=== PATIENT | male | born 1990 | race American Indian/Alaskan Native ===

== ENCOUNTER 2020-05-29 13:04 | Emergency (ER) | payer SELFPAY ==
[2020-05-29 13:08] VITALS: BP 154/100
--- NOTE | 2020-05-29 13:16 | Emergency Department Report ---
ED General Adult HPI - General Chief complaint: Dental/Oral Stated complaint: TOOTHACHE Time Seen by Provider: 05/29/20 13:05 Source: patient Mode of arrival: Ambulatory Limitations: No Limitations - History of Present Illness Initial comments: 29-year-old -[place] male patient presents with complaints of left lower dental pain x1 week. Patient admits to history of recurrent dental pain in the area. He rates his current pain is 8/10 in severity and denies any difficulty opening/closing his jaw or difficulty swallowing. He also denies any fever/chills/sweats. Patient states he recently moved to [place] and does not currently have a dental specialist. Severity scale (0 -10): 7 - Related Data Previous Rx's Medication Instructions Recorded Last Taken Type Acetaminophen/Codeine [Tylenol 1 tab PO Q8H PRN #8 tab 05/29/20 Unknown Rx /Codeine # 3 tab] Ibuprofen [Motrin 800 MG tab] 800 mg PO Q8HR PRN #21 tablet 05/29/20 Unknown Rx Penicillin V Potassium 500 mg PO QID 7 Days #28 tablet 05/29/20 Unknown Rx Allergies Allergy/AdvReac Type Severity Reaction Status Date / Time No Known Allergies Allergy Unverified 05/29/20 13:05 ED Review of Systems ROS: Stated complaint: TOOTHACHE Other details as noted in HPI Constitutional: denies: chills, fever, malaise, weakness ENT: dental pain. denies: ear pain, throat pain Respiratory: denies: shortness of breath Cardiovascular: denies: chest pain Skin: denies: change in color Hematological/Lymphatic: denies: swollen glands ED Past Medical Hx - Past Medical History Previous Medical History?: No - Surgical History Past Surgical History?: No - Social History Smoking Status: Current Every Day Smoker Substance Use Type: None - Medications Home Medications: Home Medications Medication Instructions Recorded Confirmed Last Taken Type Acetaminophen/Codeine [Tylenol 1 tab PO Q8H PRN #8 tab 05/29/20 Unknown Rx /Codeine # 3 tab] Ibuprofen [Motrin 800 MG tab] 800 mg PO Q8HR PRN #21 tablet 05/29/20 Unknown Rx Penicillin V Potassium 500 mg PO QID 7 Days #28 tablet 05/29/20 Unknown Rx ED Physical Exam - General Limitations: No Limitations General appearance: alert, in no apparent distress - Head Head exam: Present: atraumatic, normocephalic - Eye Eye exam: Present: normal appearance. Absent: scleral icterus - Expanded ENT Exam Expanded Teeth exam: Present: dental caries, fractured tooth #, dental tenderness # 1 - Fractured, Dental Tenderness - Neck Neck exam: Present: normal inspection, full ROM. Absent: thyromegaly - Respiratory Respiratory exam: Absent: respiratory distress - Cardiovascular Cardiovascular Exam: Present: regular rate - Neurological Exam Neurological exam: Present: alert, oriented X3 - Psychiatric Psychiatric exam: Present: normal affect, normal mood - Skin Skin exam: Present: warm, dry, intact, normal color. Absent: rash, cyanosis, diaphoretic, petechiae, pallor, ecchymosis ED Course Vital Signs 05/29/20 13:07 Temperature 97.8 F Pulse Rate 65 Respiratory 20 Rate Blood Pressure 154/100 [Right] O2 Sat by Pulse 96 Oximetry ED Medical Decision Making - Medical Decision Making 29-year-old -[place] male patient presents with complaints of left lower dental pain x1 week. Patient admits to history of recurrent dental pain in the area. He rates his current pain is 8/10 in severity and denies any difficulty opening/closing his jaw or difficulty swallowing. He also denies any fever/chills/sweats. Patient states he recently moved to [place] and does not currently have a dental specialist. Significant dental decay noted on exam with surrounding erythema and mild swelling of the gums. Prescription for penicillin given and patient given referral list for dental specialist. Patient to follow-up within 24 to 48 hours. His vitals are normal, he is well-appearing, he is stable for discharge home. Strict return precautions were discussed in detail with patient who verbalized understanding. Critical care attestation.: If time is entered above; I have spent that time in minutes in the direct care of this critically ill patient, excluding procedure time. ED Disposition Clinical Impression: Dental infection Disposition: DC-01 TO HOME OR SELFCARE Is pt being admited?: No Condition: Stable Instructions: Dental Abscess Additional Instructions: Please follow-up with a dental specialist from the list provided within 24 to 48 hours Prescriptions: Ibuprofen [Motrin 800 MG tab] 800 mg PO Q8HR PRN #21 tablet PRN Reason: pain Penicillin V Potassium 500 mg PO QID 7 Days #28 tablet Acetaminophen/Codeine [Tylenol /Codeine # 3 tab] 1 tab PO Q8H PRN #8 tab PRN Reason: Pain , Severe (7-10)
== END 2020-05-29 13:42 | disposition home or self-care (01) ==
LOC: ED 13:04
DX: K04.7 Periapical abscess without sinus (principal); F17.200 Nicotine dependence, unspecified, uncomplicated
CPT/HCPCS: 99282